=== PATIENT | male | born 1955 | race Two or more races ===

== ENCOUNTER 2019-02-22 08:06 | Day surgery (SDC) | payer OTHER ==
[~2019-02-22] VITALS: Ht 167.6 cm; Wt 81.6 kg
[2019-02-22 08:46] VITALS: BP 134/77
== END 2019-02-22 15:26 | disposition home or self-care (01) ==
LOC: CACL 08:06
PROVIDERS: ATTEND Internal Medicine Cardiovascular Disease
DX: I25.110 Atherosclerotic heart disease of native coronary artery with unstable angina pectoris (principal); I25.82 Chronic total occlusion of coronary artery; I34.0 Nonrheumatic mitral (valve) insufficiency; I77.1 Stricture of artery; I10 Essential (primary) hypertension; E78.2 Mixed hyperlipidemia; F17.210 Nicotine dependence, cigarettes, uncomplicated; Z72.89 Other problems related to lifestyle; Z79.82 Long term (current) use of aspirin; Z79.899 Other long term (current) drug therapy; Z82.3 Family history of stroke; Z82.49 Family history of ischemic heart disease and other diseases of the circulatory system
CPT/HCPCS: 0399T; 93306; 93458; 93880; 93970; 99156; C1769; C1894; J1644; J2250; J3010; Q9967; J0583

== ENCOUNTER 2019-02-26 12:30 | Inpatient (IN) | payer OTHER ==
[~2019-02-26] VITALS: Ht 167.6 cm; Wt 81.4 kg
[~2019-02-26 12:30] MED LIST: AMLO-150 PO; ASPI-496 PO; ATOR40TA78 PO; ISOS30TA8 PO; METO25TA35 PO; OMEP-110 PO; TRAN4TAB23 PO
[2019-03-12 12:43] LABS: BASOPHILS # (AUTO) 0.03 x10^3/uL (0-0.1); BASOPHILS % (AUTO) 0 % (0-1); EOSINOPHILS # (AUTO) 0.22 x10^3/uL (0-0.4); EOSINOPHILS % (AUTO) 3 % (1-7); LYMPHOCYTES # (AUTO) 1.92 x10^3/uL (1-3.4); LYMPHOCYTES % (AUTO) 29 % (22-44); MD NO; MEAN CORPUSCULAR HEMOGLOBIN 31.1 pg (27.5-34.5); MEAN CORPUSCULAR HGB CONC 33.9 g/dL (33.2-36.2); MEAN CORPUSCULAR VOLUME 91.7 fL (81-97); MEAN PLATELET VOLUME 8.2 fL (7.4-10.4); MONOCYTES % (AUTO) 7 % (2-9); NEUTROPHILS # (AUTO) 4.05 x10^3/uL (1.8-6.8); NEUTROPHILS % (AUTO) 60 % (42-75); PLATELET COUNT 248 x10^3/uL (130-400); RED BLOOD COUNT 5.09 x10^6/uL (4.38-5.82); RED CELL DISTRIBUTION WIDTH 14.3 % (9.4-14.8)
[2019-03-12 12:47] LABS: MICROSCOPIC AUTO
[2019-03-12 12:54] LABS: INTERNATIONAL NORMALIZED RATIO 1.09 (0.93-1.1); PROTHROMBIN TIME 11.4 Seconds (9.6-11.5)
[2019-03-12 12:56] LABS: ALANINE AMINOTRANSFERASE 40 U/L (12-78); ALBUMIN 4.1 g/dL (3.4-5.0); ANION GAP 6 mmol/L (5-15); CALCIUM 9.1 mg/dL (8.5-10.1); CHLORIDE 102 mmol/L (98-107); CREATININE 0.95 mg/dL (0.7-1.3)
[2019-03-12 12:58] LABS: ALKALINE PHOSPHATASE 82 U/L (45-117); BILIRUBIN,TOTAL 0.5 mg/dL (0.2-1.0); TOTAL PROTEIN 7.8 g/dL (6.4-8.2)
[2019-03-12] MEDS ORDERED: METO25TA35 PO (13:32)
[2019-03-12] MEDS ORDERED: ISOS30TA8 PO (13:32)
[2019-03-12 13:40] LABS: HEMOGLOBIN A1C 5.7 % (4.2-6.3)
[2019-03-13 04:48] VITALS: BP 158/91
[2019-03-13 04:49] VITALS: BP 162/89
[2019-03-13] MEDS ORDERED: CHLORHEXIDINE 15 ML UDC MM PRN (05:00)
[2019-03-13] MEDS ORDERED: INSULIN LISPRO 100 UNITS/ML, PEN SQ-INSULIN SCH (05:00)
[2019-03-13] MEDS ORDERED: METOPROLOL TARTRATE 25 MG TABLET PO ONE (05:00)
[2019-03-13] MEDS ORDERED: FENTANYL PF 250 MCG/5ML ONE ×4 (06:45→06:46)
[2019-03-13] MEDS ORDERED: MIDAZOLAM 10MG/2 ML ONE (06:45)
[2019-03-13] MEDS ORDERED: AMINOCAPROIC ACID 250 MG/ML, 20ML ONE ×2 (06:46)
[2019-03-13] MEDS ORDERED: ROCURONIUM 10MG/ML,5ML ONE ×3 (06:46→08:41)
[2019-03-13] MEDS ORDERED: EPINEPHRINE 1 MG/ML, 1ML ONE (06:46)
[2019-03-13] MEDS ORDERED: PHENYLEPHRINE 10 MG/ML ONE (06:46)
[2019-03-13] MEDS ORDERED: PROPOFOL 10 MG/ML, 20ML ONE (06:46)
[2019-03-13] MEDS ORDERED: HEPARIN 1,000 UNITS/ML, 10ML ONE (06:47)
[2019-03-13] MEDS ORDERED: PAPAVERINE 30 MG/ML, 2ML ONE (06:47)
[2019-03-13] MEDS ORDERED: EPINEPHRINE 2 MG in SODIUM CHLORIDE 0.9% 248 ML IV SCH (07:30)
[2019-03-13] MEDS ORDERED: POTASSIUM CHLORIDE 80 MEQ, SODIUM BICARBONATE 8.4% 10 MEQ, MAGNESIUM SULFATE 0.5 GM, LI... IV PRN (07:30)
[2019-03-13] MEDS ORDERED: DEXMEDETOMIDINE 200 MCG in SODIUM CHLORIDE 0.9% 48 ML IV SCH (07:30)
[2019-03-13] MEDS ORDERED: ALBUMIN HUMAN 5% 500 ML IV PRN (07:30)
[2019-03-13] MEDS ORDERED: CEFUROXIME 1.5 GM in SODIUM CHLORIDE 0.9% 50 ML IVPB PRN (07:30)
[2019-03-13] MEDS ORDERED: REGULAR INSULIN 62.5 UNITS in SODIUM CHLORIDE 0.9% 249.375 ML IV PRN ×2 (07:30→12:55)
[2019-03-13] MEDS ORDERED: VANCOMYCIN 1,200 MG in SODIUM CHLORIDE 0.9% 250 ML IV PRN (07:30)
[2019-03-13] MEDS ORDERED: MANNITOL PMX 20% 500 ML IVPB PRN (07:30)
[2019-03-13] MEDS ORDERED: PHENYLEPHRINE 10 MG in SODIUM CHLORIDE 0.9% 249 ML IV PRN ×2 (07:30→12:55)
[2019-03-13] MEDS ORDERED: SODIUM CHLORIDE FLUSH 10ML SYR IVF SCH (09:00)
[2019-03-13] MEDS: DOCUSATE 100 MG CAPSULE PO SCH ×2 (09:00→21:37)
[2019-03-13] MEDS ORDERED: MUPIROCIN OINT 2%, 22GM TP SCH (09:00)
[2019-03-13] MEDS ORDERED: HEPARIN 1,000 UNITS/ML, 10ML IV ONE (09:19)
[2019-03-13] MEDS ORDERED: PAPAVERINE 30 MG/ML, 2ML IVPush ONE (09:20)
[2019-03-13] MEDS ORDERED: ESMOLOL 100 MG/10 ML ONE (09:42)
[2019-03-13] MEDS ORDERED: PROTAMINE SULFATE 10 MG/ML, 25ML ONE ×2 (11:40→12:02)
[2019-03-13] MEDS ORDERED: CALCIUM CHLORIDE 10%, 10ML SYR ONE (11:49)
[2019-03-13] MEDS ORDERED: DEXMEDETOMIDINE 200 MCG in SODIUM CHLORIDE 0.9% 48 ML IV PRN (12:55)
[2019-03-13] MEDS ORDERED: SODIUM CHLORIDE 0.9% 1,000 ML IV PRN (12:55)
[2019-03-13] MEDS ORDERED: NITROGLYCERIN/D5W PMX 250 ML IV PRN (12:55)
[2019-03-13] MEDS ORDERED: VASOPRESSIN 50 UNIT in SODIUM CHLORIDE 0.9% 247.5 ML IV PRN (12:55)
[2019-03-13] MEDS ORDERED: DOBUTAMINE 250 MG in SODIUM CHLORIDE 0.9% 230 ML IV PRN (12:55)
[2019-03-13] MEDS ORDERED: BISACODYL 10 MG SUPP PR PRN (13:00)
[2019-03-13] MEDS ORDERED: SODIUM BICARB 8.4%, 50ML SYRINGE IV PRN (13:00)
[2019-03-13] MEDS ORDERED: PROCHLORPERAZINE 5 MG/ML, 2ML IVPush PRN (13:00)
[2019-03-13] MEDS ORDERED: ACETAMINOPHEN 325 MG TABLET PO PRN (13:00)
[2019-03-13] MEDS ORDERED: ACETAMINOPHEN 650 MG SUPP PR PRN (13:00)
[2019-03-13] MEDS ORDERED: DEXTROSE 50%, 50ML SYRINGE IVPush PRN (13:00)
[2019-03-13] MEDS ORDERED: EPINEPHRINE 2 MG in SODIUM CHLORIDE 0.9% 248 ML IV PRN (13:00)
[2019-03-13] MEDS ORDERED: LACTATED RINGERS 1,000 ML IV PRN (13:00)
[2019-03-13] MEDS ORDERED: MIDAZOLAM 1 MG/ML, 5ML IVPush PRN (13:00)
[2019-03-13] MEDS ORDERED: INSULIN REGULAR 100 UNITS/ML, 3ML VIAL IVPush PRN (13:00)
[2019-03-13] MEDS ORDERED: GLUCAGON 1 MG IM PRN (13:00)
[2019-03-13] MEDS ORDERED: BISACODYL 5 MG EC TABLET PO PRN (13:00)
[2019-03-13] MEDS ORDERED: ONDANSETRON 2MG/ML, 2ML IVPush PRN (13:00)
[2019-03-13] MEDS ORDERED: DEXTROSE 4 GM TAB.CHEW PO PRN (13:00)
[2019-03-13] MEDS ORDERED: SODIUM BICARBONATE 1 MEQ/ML, 50ML VIAL ONE (13:08)
[2019-03-13] MEDS ORDERED: ALBUMIN HUMAN 25% 50 ML ONE (13:08)
[2019-03-13] MEDS ORDERED: HEPARIN 1,000 UNITS/ML, 30ML ONE (13:08)
[2019-03-13 13:25] LABS: GLUCOSE BY BLOOD GAS ANALYZER 146 mg/dL (70-110); POTASSIUM BY BLOOD GAS ANALYZR 4.3 mmol/L (3.6-5.5)
[2019-03-13 13:35] LABS: INTERNATIONAL NORMALIZED RATIO 1.3 (0.93-1.1); PROTHROMBIN TIME 13.5 Seconds (9.6-11.5)
[2019-03-13] MEDS ORDERED: MORPHINE SULFATE 4 MG/ML, 1ML ONE (13:48)
[2019-03-13] MEDS: morphine SULFATE 10 MG/ML, 1ML IVPush PRN ×4 (13:50→22:40)
[2019-03-13] MEDS: KSCALE TO 4.5 IV SCH ×2 (13:52→20:00)
[2019-03-13] MEDS: MAGNESIUM SULFATE 1 GM in SODIUM CHLORIDE 0.9% 50 ML IVPB SCH (14:36)
[2019-03-13] MEDS ORDERED: FILTER 0.22 MICRON IV PRN (15:00)
[2019-03-13] MEDS ORDERED: AMIODARONE 900 MG in DEXTROSE 5% 482 ML IV PRN (15:00)
[2019-03-13] MEDS: HYDROcodone/APAP 5/325 TABLET PO PRN (18:39)
[2019-03-13] MEDS: CEFUROXIME 1.5 GM in SODIUM CHLORIDE 0.9% 50 ML IVPB SCH (20:13)
[2019-03-13] MEDS: OXYcodone IR 5MG TABLET PO PRN ×2 (20:13→21:02)
[2019-03-13] MEDS: MUPIROCIN OINT 2%, 22GM NAS SCH (21:37)
[2019-03-13] MEDS: SODIUM CHLORIDE FLUSH 10ML SYR IVF SCH (21:37)
[2019-03-13] MEDS: VANCOMYCIN 1,200 MG in SODIUM CHLORIDE 0.9% 250 ML IVPB SCH (21:37)
[2019-03-13] MEDS: INSULIN LISPRO 100 UNITS/ML, PEN SQ-INSULIN SCH (21:38)
[2019-03-14] MEDS: HYDROcodone/APAP 5/325 TABLET PO PRN ×4 (00:06→14:34)
[2019-03-14] MEDS: KSCALE TO 4.5 IV SCH ×2 (02:00→07:31)
[2019-03-14] MEDS: INSULIN LISPRO 100 UNITS/ML, PEN SQ-INSULIN SCH ×4 (02:18→20:21)
[2019-03-14 02:26] LABS: BASOPHILS % (AUTO) 0 % (0-1); EOSINOPHILS % (AUTO) 0 % (1-7); LYMPHOCYTES # (AUTO) 1.06 x10^3/uL (1-3.4); LYMPHOCYTES % (AUTO) 8 % (22-44); MD NO; MEAN CORPUSCULAR HEMOGLOBIN 31.5 pg (27.5-34.5); MEAN CORPUSCULAR HGB CONC 33.7 g/dL (33.2-36.2); MEAN CORPUSCULAR VOLUME 93.7 fL (81-97); MEAN PLATELET VOLUME 9.2 fL (7.4-10.4); MONOCYTES # (AUTO) 0.99 x10^3/uL (0.2-0.8); MONOCYTES % (AUTO) 7 % (2-9); NEUTROPHILS # (AUTO) 12.12 x10^3/uL (1.8-6.8); NEUTROPHILS % (AUTO) 86 % (42-75); PLATELET COUNT 182 x10^3/uL (130-400); RED BLOOD COUNT 3.86 x10^6/uL (4.38-5.82); RED CELL DISTRIBUTION WIDTH 13.9 % (9.4-14.8)
[2019-03-14 02:36] LABS: ALBUMIN 3.4 g/dL (3.4-5.0); ANION GAP 7 mmol/L (5-15); CALCIUM 8.3 mg/dL (8.5-10.1); CHLORIDE 109 mmol/L (98-107); CREATININE 0.85 mg/dL (0.7-1.3)
[2019-03-14 04:00] VITALS: BP 116/53
[2019-03-14] MEDS: OXYcodone IR 5MG TABLET PO PRN ×5 (06:30→22:59)
[2019-03-14] MEDS: CEFUROXIME 1.5 GM in SODIUM CHLORIDE 0.9% 50 ML IVPB SCH (07:37)
[2019-03-14] MEDS: DOCUSATE 100 MG CAPSULE PO SCH ×2 (08:49→20:15)
[2019-03-14] MEDS: ASPIRIN 81 MG TABLET EC PO SCH (08:50)
[2019-03-14] MEDS: METOPROLOL TARTRATE 25 MG TABLET PO/NG SCH ×2 (08:51→20:17)
[2019-03-14] MEDS: AMIODARONE 200 MG TABLET PO SCH ×2 (08:54→20:17)
[2019-03-14] MEDS: MUPIROCIN OINT 2%, 22GM NAS SCH ×2 (08:56→20:19)
[2019-03-14] MEDS: VANCOMYCIN 1,200 MG in SODIUM CHLORIDE 0.9% 250 ML IVPB SCH (08:59)
[2019-03-14] MEDS: SODIUM CHLORIDE FLUSH 10ML SYR IVF SCH ×2 (09:03→20:18)
[2019-03-14] MEDS: MAGNESIUM SULFATE 1 GM in SODIUM CHLORIDE 0.9% 50 ML IVPB SCH (14:34)
[2019-03-14] MEDS: FUROSEMIDE 20 MG/2 ML IV SCH (16:21)
[2019-03-14 19:27] VITALS: BP 125/76
[2019-03-14] MEDS: OMEPRAZOLE 20 MG CAPSULE.DR PO SCH (20:14)
[2019-03-14] MEDS: CHLORHEXIDINE 15 ML UDC MM SCH (20:14)
[2019-03-14] MEDS: ATORVASTATIN 10 MG TABLET PO SCH (20:15)
[2019-03-15 01:56] VITALS: BP 124/78
[2019-03-15] MEDS: HYDROcodone/APAP 5/325 TABLET PO PRN ×3 (03:45→16:37)
[2019-03-15] MEDS: OMEPRAZOLE 20 MG CAPSULE.DR PO SCH ×2 (05:46→20:41)
[2019-03-15 05:52] LABS: ANION GAP 6 mmol/L (5-15); CALCIUM 8.3 mg/dL (8.5-10.1); CHLORIDE 105 mmol/L (98-107); CREATININE 0.89 mg/dL (0.7-1.3)
[2019-03-15 06:17] LABS: MEAN CORPUSCULAR HEMOGLOBIN 31.1 pg (27.5-34.5); MEAN CORPUSCULAR HGB CONC 33.6 g/dL (33.2-36.2); MEAN CORPUSCULAR VOLUME 92.6 fL (81-97); MEAN PLATELET VOLUME 8.8 fL (7.4-10.4); PLATELET COUNT 138 x10^3/uL (130-400); RED BLOOD COUNT 3.56 x10^6/uL (4.38-5.82); RED CELL DISTRIBUTION WIDTH 14.1 % (9.4-14.8)
[2019-03-15 06:39] LABS: BASOPHILS # (AUTO) 0.04 x10^3/uL (0-0.1); BASOPHILS % (AUTO) 0 % (0-1); EOSINOPHILS % (AUTO) 0 % (1-7); LYMPHOCYTES # (AUTO) 1.06 x10^3/uL (1-3.4); LYMPHOCYTES % (AUTO) 8 % (22-44); MD SCAN; MONOCYTES # (AUTO) 1.48 x10^3/uL (0.2-0.8); MONOCYTES % (AUTO) 12 % (2-9); NEUTROPHILS # (AUTO) 10.27 x10^3/uL (1.8-6.8); NEUTROPHILS % (AUTO) 80 % (42-75)
[2019-03-15] MEDS: OXYcodone IR 5MG TABLET PO PRN ×5 (06:47→22:41)
[2019-03-15] MEDS: INSULIN LISPRO 100 UNITS/ML, PEN SQ-INSULIN SCH ×4 (07:00→20:51)
[2019-03-15 07:19] VITALS: BP 116/73
[2019-03-15] MEDS: FUROSEMIDE 20 MG/2 ML IV SCH ×2 (07:22→17:25)
[2019-03-15] MEDS: ENOXAPARIN 40 MG/0.4 ML SQ SCH (09:00)
[2019-03-15] MEDS ORDERED: LIDODERM 5% PATCH TD SCH (09:00)
[2019-03-15] MEDS: CHLORHEXIDINE 15 ML UDC MM SCH ×2 (09:20→20:43)
[2019-03-15] MEDS: MUPIROCIN OINT 2%, 22GM NAS SCH ×2 (09:21→20:42)
[2019-03-15] MEDS: DOCUSATE 100 MG CAPSULE PO SCH ×2 (09:24→20:41)
[2019-03-15] MEDS: AMIODARONE 200 MG TABLET PO SCH ×2 (09:24→20:41)
[2019-03-15] MEDS: ASPIRIN 81 MG TABLET EC PO SCH (09:24)
[2019-03-15] MEDS: METOPROLOL TARTRATE 25 MG TABLET PO/NG SCH ×2 (09:25→20:42)
[2019-03-15] MEDS: SODIUM CHLORIDE FLUSH 10ML SYR IVF SCH ×2 (09:46→20:43)
[2019-03-15] MEDS ORDERED: LIDODERM 5% PATCH TD ONE ×2 (12:30→21:00)
[2019-03-15] MEDS: CYCLOBENZAPRINE 10 MG TABLET PO PRN ×2 (12:45→22:36)
[2019-03-15] MEDS: MAGNESIUM SULFATE 1 GM in SODIUM CHLORIDE 0.9% 50 ML IVPB SCH (14:33)
[2019-03-15 19:48] VITALS: BP 121/76
[2019-03-15] MEDS: ATORVASTATIN 10 MG TABLET PO SCH (20:41)
[2019-03-16 01:17] VITALS: BP 143/79
[2019-03-16] MEDS: HYDROcodone/APAP 5/325 TABLET PO PRN ×3 (05:50→20:30)
[2019-03-16 06:00] LABS: ANION GAP 7 mmol/L (5-15); CALCIUM 8.1 mg/dL (8.5-10.1); CHLORIDE 102 mmol/L (98-107)
[2019-03-16 06:07] LABS: BASOPHILS # (AUTO) 0.05 x10^3/uL (0-0.1); BASOPHILS % (AUTO) 0 % (0-1); EOSINOPHILS # (AUTO) 0.01 x10^3/uL (0-0.4); EOSINOPHILS % (AUTO) 0 % (1-7); LYMPHOCYTES # (AUTO) 2.02 x10^3/uL (1-3.4); LYMPHOCYTES % (AUTO) 16 % (22-44); MD NO; MEAN CORPUSCULAR HEMOGLOBIN 31.9 pg (27.5-34.5); MEAN CORPUSCULAR HGB CONC 34.1 g/dL (33.2-36.2); MEAN CORPUSCULAR VOLUME 93.7 fL (81-97); MEAN PLATELET VOLUME 10.1 fL (7.4-10.4); MONOCYTES # (AUTO) 1.21 x10^3/uL (0.2-0.8); MONOCYTES % (AUTO) 10 % (2-9); NEUTROPHILS # (AUTO) 9.06 x10^3/uL (1.8-6.8); NEUTROPHILS % (AUTO) 73 % (42-75); PLATELET COUNT 138 x10^3/uL (130-400); RED BLOOD COUNT 3.42 x10^6/uL (4.38-5.82); RED CELL DISTRIBUTION WIDTH 13.6 % (9.4-14.8)
[2019-03-16 07:15] VITALS: BP 115/68
[2019-03-16] MEDS: FUROSEMIDE 20 MG/2 ML IV SCH ×2 (07:55→17:21)
[2019-03-16] MEDS: OMEPRAZOLE 20 MG CAPSULE.DR PO SCH ×2 (07:56→20:30)
[2019-03-16] MEDS ORDERED: POTASSIUM CHLORIDE 20 MEQ TAB.ER.PRT PO ONE (08:00)
[2019-03-16] MEDS: CLOPIDOGREL 75 MG TABLET PO SCH (09:47)
[2019-03-16] MEDS: GUAIFENESIN ER 600 MG TABLET PO SCH ×2 (09:47→20:30)
[2019-03-16] MEDS: ASPIRIN 81 MG TABLET EC PO SCH (09:48)
[2019-03-16] MEDS: METOPROLOL TARTRATE 25 MG TABLET PO/NG SCH ×2 (09:48→20:30)
[2019-03-16] MEDS: DOCUSATE 100 MG CAPSULE PO SCH ×2 (09:48→20:30)
[2019-03-16] MEDS: MUPIROCIN OINT 2%, 22GM NAS SCH ×2 (09:49→20:30)
[2019-03-16] MEDS: CHLORHEXIDINE 15 ML UDC MM SCH (09:49)
[2019-03-16] MEDS: AMIODARONE 200 MG TABLET PO SCH ×2 (09:49→20:30)
[2019-03-16] MEDS: ENOXAPARIN 40 MG/0.4 ML SQ SCH (09:50)
[2019-03-16] MEDS: SODIUM CHLORIDE FLUSH 10ML SYR IVF SCH ×2 (09:50→20:30)
[2019-03-16 12:47] VITALS: BP 127/79
[2019-03-16 20:30] VITALS: BP 128/81
[2019-03-16] MEDS: ATORVASTATIN 10 MG TABLET PO SCH (20:30)
[2019-03-16] MEDS: CYCLOBENZAPRINE 10 MG TABLET PO PRN (23:16)
[2019-03-17 05:00] LABS: BASOPHILS # (AUTO) 0.03 x10^3/uL (0-0.1); BASOPHILS % (AUTO) 0 % (0-1); EOSINOPHILS # (AUTO) 0.06 x10^3/uL (0-0.4); EOSINOPHILS % (AUTO) 1 % (1-7); LYMPHOCYTES # (AUTO) 1.91 x10^3/uL (1-3.4); LYMPHOCYTES % (AUTO) 19 % (22-44); MD NO; MEAN CORPUSCULAR HEMOGLOBIN 31.9 pg (27.5-34.5); MEAN CORPUSCULAR HGB CONC 33.8 g/dL (33.2-36.2); MEAN CORPUSCULAR VOLUME 94.6 fL (81-97); MEAN PLATELET VOLUME 10.1 fL (7.4-10.4); MONOCYTES # (AUTO) 0.92 x10^3/uL (0.2-0.8); MONOCYTES % (AUTO) 9 % (2-9); NEUTROPHILS # (AUTO) 7.03 x10^3/uL (1.8-6.8); NEUTROPHILS % (AUTO) 71 % (42-75); PLATELET COUNT 165 x10^3/uL (130-400); RED BLOOD COUNT 3.48 x10^6/uL (4.38-5.82); RED CELL DISTRIBUTION WIDTH 13.8 % (9.4-14.8)
[2019-03-17] MEDS: OXYcodone IR 5MG TABLET PO PRN ×4 (05:00→18:20)
[2019-03-17 05:05] LABS: ANION GAP 8 mmol/L (5-15); CHLORIDE 102 mmol/L (98-107); CREATININE 0.92 mg/dL (0.7-1.3)
[2019-03-17 07:21] VITALS: BP 122/75
[2019-03-17] MEDS: MUPIROCIN OINT 2%, 22GM NAS SCH ×2 (09:45→21:49)
[2019-03-17] MEDS: ASPIRIN 81 MG TABLET EC PO SCH (09:45)
[2019-03-17] MEDS: ENOXAPARIN 40 MG/0.4 ML SQ SCH (09:46)
[2019-03-17] MEDS: CLOPIDOGREL 75 MG TABLET PO SCH (09:46)
[2019-03-17] MEDS: FUROSEMIDE 20 MG/2 ML IV SCH ×2 (09:46→16:34)
[2019-03-17] MEDS: METOPROLOL TARTRATE 25 MG TABLET PO/NG SCH ×2 (09:46→21:50)
[2019-03-17] MEDS: DOCUSATE 100 MG CAPSULE PO SCH ×2 (09:47→21:50)
[2019-03-17] MEDS: AMIODARONE 200 MG TABLET PO SCH (09:47)
[2019-03-17] MEDS: GUAIFENESIN ER 600 MG TABLET PO SCH ×2 (09:47→21:50)
[2019-03-17] MEDS: SODIUM CHLORIDE FLUSH 10ML SYR IVF SCH ×2 (09:47→21:49)
[2019-03-17] MEDS: OMEPRAZOLE 20 MG CAPSULE.DR PO SCH ×2 (09:50→16:34)
[2019-03-17 13:44] VITALS: BP 124/82
[2019-03-17 19:18] VITALS: BP 149/84
[2019-03-17] MEDS: ATORVASTATIN 10 MG TABLET PO SCH (21:50)
[2019-03-17] MEDS: CYCLOBENZAPRINE 10 MG TABLET PO PRN (23:06)
[2019-03-18 02:17] VITALS: BP 160/88
[2019-03-18] MEDS: HYDROcodone/APAP 5/325 TABLET PO PRN ×2 (02:18→15:05)
[2019-03-18 05:08] LABS: BASOPHILS # (AUTO) 0.03 x10^3/uL (0-0.1); BASOPHILS % (AUTO) 0 % (0-1); EOSINOPHILS # (AUTO) 0.19 x10^3/uL (0-0.4); EOSINOPHILS % (AUTO) 2 % (1-7); LYMPHOCYTES # (AUTO) 1.94 x10^3/uL (1-3.4); LYMPHOCYTES % (AUTO) 23 % (22-44); MD NO; MEAN CORPUSCULAR HEMOGLOBIN 30.4 pg (27.5-34.5); MEAN CORPUSCULAR HGB CONC 32.8 g/dL (33.2-36.2); MEAN CORPUSCULAR VOLUME 92.9 fL (81-97); MEAN PLATELET VOLUME 9.1 fL (7.4-10.4); MONOCYTES # (AUTO) 0.87 x10^3/uL (0.2-0.8); MONOCYTES % (AUTO) 10 % (2-9); NEUTROPHILS # (AUTO) 5.33 x10^3/uL (1.8-6.8); NEUTROPHILS % (AUTO) 64 % (42-75); PLATELET COUNT 187 x10^3/uL (130-400); RED CELL DISTRIBUTION WIDTH 13.7 % (9.4-14.8)
[2019-03-18 05:16] LABS: ANION GAP 9 mmol/L (5-15); CALCIUM 8.1 mg/dL (8.5-10.1); CHLORIDE 102 mmol/L (98-107); CREATININE 1.04 mg/dL (0.7-1.3)
[2019-03-18 07:25] VITALS: BP 163/97
[2019-03-18] MEDS: MUPIROCIN OINT 2%, 22GM NAS SCH (09:32)
[2019-03-18] MEDS: OXYcodone IR 5MG TABLET PO PRN ×4 (09:32→22:39)
[2019-03-18] MEDS: ENOXAPARIN 40 MG/0.4 ML SQ SCH (09:33)
[2019-03-18] MEDS: GUAIFENESIN ER 600 MG TABLET PO SCH ×2 (09:34→21:13)
[2019-03-18] MEDS: FUROSEMIDE 20 MG/2 ML IV SCH ×2 (09:34→17:06)
[2019-03-18] MEDS: ASPIRIN 81 MG TABLET EC PO SCH (09:34)
[2019-03-18] MEDS: METOPROLOL TARTRATE 25 MG TABLET PO/NG SCH ×2 (09:35→21:13)
[2019-03-18] MEDS: DOCUSATE 100 MG CAPSULE PO SCH ×2 (09:35→21:13)
[2019-03-18] MEDS: CLOPIDOGREL 75 MG TABLET PO SCH (09:35)
[2019-03-18] MEDS: LISINOPRIL 20 MG TABLET PO SCH ×2 (09:35→21:12)
[2019-03-18] MEDS: SODIUM CHLORIDE FLUSH 10ML SYR IVF SCH ×2 (09:36→21:11)
[2019-03-18] MEDS: OMEPRAZOLE 20 MG CAPSULE.DR PO SCH ×2 (09:47→17:06)
[2019-03-18 13:40] VITALS: BP 121/77
[2019-03-18] MEDS: ATORVASTATIN 10 MG TABLET PO SCH (21:12)
[2019-03-18] MEDS ORDERED: POTASSIUM CHLORIDE 20 MEQ TAB.ER.PRT PO ONE (21:30)
[2019-03-18 21:33] VITALS: BP 124/80
[2019-03-19] MEDS: OXYcodone IR 5MG TABLET PO PRN ×3 (01:41→10:15)
[2019-03-19 01:46] VITALS: BP 144/80
[2019-03-19 05:48] LABS: ANION GAP 7 mmol/L (5-15); CALCIUM 8.3 mg/dL (8.5-10.1); CHLORIDE 104 mmol/L (98-107)
[2019-03-19 05:51] LABS: CREATININE 1.02 mg/dL (0.7-1.3)
[2019-03-19] MEDS: OMEPRAZOLE 20 MG CAPSULE.DR PO SCH (05:51)
[2019-03-19] MEDS: FUROSEMIDE 20 MG/2 ML IV SCH (05:51)
[2019-03-19 06:42] VITALS: BP 109/61
[2019-03-19] MEDS ORDERED: POTASSIUM CHLORIDE 10 MEQ TABLET.ER PO SCH (08:00)
[2019-03-19] MEDS: CLOPIDOGREL 75 MG TABLET PO SCH (09:58)
[2019-03-19] MEDS: LISINOPRIL 20 MG TABLET PO SCH (09:58)
[2019-03-19] MEDS: DOCUSATE 100 MG CAPSULE PO SCH (09:58)
[2019-03-19] MEDS: ASPIRIN 81 MG TABLET EC PO SCH (09:58)
[2019-03-19] MEDS: SODIUM CHLORIDE FLUSH 10ML SYR IVF SCH (09:58)
[2019-03-19] MEDS: GUAIFENESIN ER 600 MG TABLET PO SCH (09:58)
[2019-03-19] MEDS: METOPROLOL TARTRATE 25 MG TABLET PO/NG SCH (09:58)
[2019-03-19] MEDS: ENOXAPARIN 40 MG/0.4 ML SQ SCH (09:59)
[2019-03-19 10:00] VITALS: BP 132/81
[2019-03-19] MEDS ORDERED: METO25TA35 PO/NG (10:21)
[2019-03-19] MEDS ORDERED: POTA10TA5 PO (10:21)
[2019-03-19] MEDS ORDERED: FURO-93 PO (10:21)
[2019-03-19] MEDS ORDERED: CLOP75TA PO (10:21)
[2019-03-19] MEDS ORDERED: DOCU-131 PO (10:21)
[2019-03-19] MEDS ORDERED: GUAI600T31 PO (10:21)
[2019-03-19 13:18] VITALS: BP 123/76
[2019-03-19] MEDS: HYDROcodone/APAP 5/325 TABLET PO PRN (14:18)
[2019-03-19] MEDS ORDERED: OXYC5CAP2 PO (14:45)
[2019-03-19] MEDS ORDERED: HYDR-3240 PO (14:45)
== END 2019-03-19 15:21 | disposition home health service (06) | DRG 236 ==
LOC: 5SO 03-13 04:27 → CSU 03-13 08:11 → 5SO 03-14 18:05 → DCLOUNGE 03-19 14:44
PROVIDERS: ADMIT Thoracic Surgery (Cardiothoracic Vascular Surgery); ATTEND Thoracic Surgery (Cardiothoracic Vascular Surgery)
PROC: 021109W Bypass Coronary Artery, Two Arteries from Aorta with Autologous Venous Tissue, Open Approach (ICD-10-PCS; 2019-03-13)
PROC: 06BP4ZZ Excision of Right Saphenous Vein, Percutaneous Endoscopic Approach (ICD-10-PCS; 2019-03-13)
PROC: 05HM33Z Insertion of Infusion Device into Right Internal Jugular Vein, Percutaneous Approach (ICD-10-PCS; 2019-03-13)
PROC: B543ZZA Ultrasonography of Right Jugular Veins, Guidance (ICD-10-PCS; 2019-03-13)
PROC: 5A1221Z Performance of Cardiac Output, Continuous (ICD-10-PCS; 2019-03-13)
PROC: 4A133B1 Monitoring of Arterial Pressure, Peripheral, Percutaneous Approach (ICD-10-PCS; 2019-03-13)
PROC: 02100Z9 Bypass Coronary Artery, One Artery from Left Internal Mammary, Open Approach (ICD-10-PCS; principal; 2019-03-13 07:30)
DX: I25.119 Atherosclerotic heart disease of native coronary artery with unspecified angina pectoris (principal); E78.5 Hyperlipidemia, unspecified; I10 Essential (primary) hypertension; K21.9 Gastro-esophageal reflux disease without esophagitis; F17.210 Nicotine dependence, cigarettes, uncomplicated; G89.18 Other acute postprocedural pain
CPT/HCPCS: 36415; 36600; J3490; S0017; 71045; 71046; 80048; 80053; 81001; 82040; 82330; 82800; 82803; 82810; 82947; 82962; 83036; 83735; 84132; 84295; 85014; 85018; 85025; 85049; 85347; 85610; 85730; 86850; 86900; 86923; 87081; 93005; 93312; 93321; 93325; 94002; 94150; G0378; J0171; J0697; J1644; J1650; J1815; J2250; J2704; J2720; J3010; J3370; J3475; J3480; P9045; P9047; C1751; C1760; J0282; J1940; J2270; J2370; J2440; J7050; J7060; J7120

== ENCOUNTER → 2020-01-14 | Outpatient (CLI) | payer OTHER ==
[~2020-01-14] MED LIST changes: +CLOP75TA PO; +DOCU-131 PO; +FURO-93 PO; +GUAI600T31 PO; +HYDR-3240 PO; +METO25TA35 PO/NG; +OXYC5CAP2 PO; +POTA10TA5 PO
== END | disposition home or self-care (01) ==
LOC: CVU 12:48
PROVIDERS: ATTEND Internal Medicine Cardiovascular Disease
DX: I08.1 Rheumatic disorders of both mitral and tricuspid valves (principal); I73.9 Peripheral vascular disease, unspecified; I10 Essential (primary) hypertension; I25.10 Atherosclerotic heart disease of native coronary artery without angina pectoris
CPT/HCPCS: 93306; 93356; 93922